=== PATIENT | female | born 1955 | race American Indian/Alaskan Native ===

== ENCOUNTER 2020-01-06 10:19 | Emergency (ER) | payer SELFPAY ==
[2020-01-06 10:30] VITALS: BP 154/100
--- NOTE | 2020-01-06 11:10 | Emergency Department Report ---
Chief Complaint: Dental/Oral Stated Complaint: ABSCESS Time Seen by Provider: 01/06/20 11:06 - HPI History of Present Illness: This is a 64-year-old female with a past medical history of high blood pressure and takes medication daily presents the to ED complaining of 10/10 pain in the right side of his mouth x 4 days . Patient states that the pain started 5 days ago and has increased in severity over the last 2 days. The pain is exacerbated by eating and opening of the mouth. Patient states the pain is alleviated initially with pain medication but comes back. Patient states that it radiates towards ear. Patient describes a as a throbbing, pressure-like sensation. Patient states otherwise well and has no other complaints. Patient has had no fevers and no chills. No chest pain, no shortness of breath. No abdominal pain. No shortness of breath or recent trauma to the face. - ROS Review of Systems: As noted in HPI - Exam Vital Signs: Vital Signs 01/06/20 10:25 Temperature 98.9 F Pulse Rate 76 Blood Pressure 154/100 O2 Sat by Pulse 96 Oximetry Physical Exam: GENERAL: Alert and oriented x3, no apparent distress, Normal Gait, atraumatic. HEAD: Head is normocephalic and a-traumatic. MOUTH:Mouth is well hydrated and without lesions. Tonsils nonerythematous or swollen, Uvula midline, Tongue not elevated. Mucous membranes are moist. Posterior pharynx clear, no exudate or lesions. Patent airways. Gingival enlargement at the base of tooth number NECK: Supple. Non edematous, No carotid bruits. No lymphadenopathy or th yromegaly. NEUROLOGIC: The patient is cooperative with no focal neurologic deficits. Cranial nerves II through XII are grossly intact. Normal speech. SKIN: Warm and dry, No lesions, No ulceration or induration present. MSE screening note: Focused history and physical exam performed. Due to findings the following was ordered: ED Medical Decision Making - Medical Decision Making 64-year-old female who presents with right sided Facial pain secondary to odontogenic caries ED course: Pt feels on the right side of his face and towards the ear is referred pain from this infectious process of the dental. Pt has no evidence of acute impending airway compromise. At this point, patient will be discharged home on some antibiotics and pain trial, she will do well with an outpatient course of antibiotics. Follow up with the Dental Clinic as referred Vital signs are normal patient is in no acute distress. Pt had an effect uneventful ED stay ED Disposition for MSE Clinical Impression: Dental abscess, Pain, dental Disposition: MED SCREENING EXAM-LEFT Is pt being admited?: No Does the pt Need Aspirin: No Condition: Stable Instructions: Dental Abscess (ED), Toothache (ED) Additional Instructions: Make sure to follow up with the dentist as discussed. Take all your medications as you've been prescribed. If you have any worsening symptoms or develop new symptoms please return to ED immediately. Prescriptions: Clindamycin [Clindamycin CAP] 300 mg PO Q8H #21 cap Ibuprofen [Motrin 800 MG tab] 800 mg PO Q8HR PRN #30 tablet PRN Reason: Pain Referrals: [facility] [Outside] - 3-5 Days [facility] [Outside] - 3-5 Days Forms: Work/School Release Form(ED) Time of Disposition: 11:12
== END 2020-01-06 11:35 | disposition left against medical advice (07) ==
LOC: ED 10:19
DX: I10 Essential (primary) hypertension (principal); Z53.21 Procedure and treatment not carried out due to patient leaving prior to being seen by health care provider